=== PATIENT | male | born 1960 | race Caucasian/White ===

== ENCOUNTER → 2018-04-20 12:39 | Outpatient (CLI) | payer OTHER, SELFPAY ==
--- NOTE | 2018-04-20 12:44 | CT_ITS ---
CT sinus wo/w con CLINICAL INDICATION: Benign positional vertigo ITS.REASON: vertigo ORDERING PHYSICIAN: All Christianson MD PATIENT AGE: 57 years COMPARISON: None TECHNIQUE:Axial images obtained without and with contrast with sagittal and coronal reformats. All CT scans at the facility use one or more dose reduction, viz: automated exposure control, ma/kV adjustment per patient size (including targeted exams where dose is matched to indication, i.e. head), or iterative reconstruction technique. FINDINGS: There is mild mucosal thickening of the frontal sinuses. Moderate to severe mucosal thickening involves the superior and anterior ethmoids on both sides. There is moderate mucosal thickening of the left maxillary sinus with air-fluid level in the left maxillary sinus. There is mild mucosal thickening of the right maxillary sinus and sphenoid sinuses. There is only minimal rightward nasal septal deviation. There is mild mucosal edema of the left nasal turbinates. No nasal or sinus enhancing lesion evident. There is occlusion of the left ostiomeatal complex. The right OMC is patent. The orbits have an unremarkable appearance. Intracranial contents are grossly unremarkable. No obvious nasopharyngeal mass. The TMJs have an unremarkable appearance. There is opacification of the right external auditory canal. There are a few opacified mastoid air cells bilaterally and are nonspecific.. No evidence of cholesteatoma. No enhancing CP angle mass apparent. IMPRESSION: 1. Paranasal sinus inflammatory changes with mucosal thickening and an air-fluid level in the left maxillary sinus. 2. Mild rightward nasal septal deviation. 3. Minimal opacification of the mastoid air cells bilaterally
[2018-04-20 13:13] LABS: Anion Gap 11.2 mEq/L (5-15); Blood Urea Nitrogen 19 mg/dL (7-18); Calcium 9.5 mg/dL (8.5-10.1); Carbon Dioxide 25 mmol/L (21.0-32.0); Chloride 106 mmol/L (98-107); Creatinine,Serum 1.32 mg/dL (0.70-1.30); Estimated Glomerular Filt Rate 56 ml/min (>60); GFR (African American) 68 ML/MIN (>60); Glucose 107 mg/dL (74-106); Potassium 4.2 mmoL/L (3.5-5.1); Sodium 138 mmol/L (136-145)
== END ==
PROVIDERS: Family Provider Family Medicine Geriatric Medicine; PCP Family Medicine; Visit Provider Otolaryngology
DX: H81.10 Benign paroxysmal vertigo, unspecified ear (principal); J32.4 Chronic pansinusitis; H61.23 Impacted cerumen, bilateral; J30.2 Other seasonal allergic rhinitis
CPT/HCPCS: 36415; 70488; 80048; Q9967

== ENCOUNTER 2019-05-22 08:00 | Outpatient (RCR) | payer OTHER, SELFPAY | END 2019-05-22 08:05 | disposition home or self-care (01) | LOC: OT 08:00 | PROVIDERS: Visit Provider Orthopaedic Surgery Adult Reconstructive Orthopaedic Surgery | DX: S62.209A Unspecified fracture of first metacarpal bone, unspecified hand, initial encounter for closed fracture (principal) | CPT/HCPCS: 97035; 97110; 97140; 97166 ==

== ENCOUNTER 2025-06-04 07:05 | Outpatient (CLI) | payer MEDICARE, SELFPAY ==
--- NOTE | 2025-06-04 07:15 | CT_ITS ---
FINAL REPORT TECHNIQUE: Axial CT of the abdomen and pelvis, without and with IV contrast. This study was performed with techniques to keep radiation doses as low as reasonably achievable, (ALARA). Individualized dose reduction techniques using automated exposure control or adjustment of mA and/or kV according to the patient''s size were employed. CLINICAL HISTORY: ABD PAIN COMPARISON: None FINDINGS: Abdomen: Lung bases are clear. Liver has an unremarkable CT appearance. The spleen, pancreas and adrenal glands are unremarkable. The gallbladder is unremarkable. Precontrast imaging shows no renal stone disease. Postcontrast imaging of the kidneys shows no evidence of obstruction. There are multiple bilateral renal cysts. No evidence of enhancing renal mass. No bowel obstruction or fluid collection is seen. Pelvis: The appendix is normal. Pelvic bowel loops are unremarkable. The urinary bladder is unremarkable. There is a small left inguinal hernia. No fluid collection or adenopathy is seen. Bilateral L5 pars defects are noted without spondylolisthesis. IMPRESSION: No acute findings or abnormality identified to account for symptoms. Reviewed, Interpreted and Dictated by Marbella Lynn MD Transcribed by Mabel Acevedo Authenticated and [facility] [place]
[2025-06-04 07:45] LABS: Blood Urea Nitrogen 22 mg/dl (9-20); Creatinine,Serum 1.20 mg/dl (0.66-1.25); Estimated Glomerular Filt Rate 61 ml/min (>60); GFR (African American) 74 ML/MIN (>60)
[2025-06-04] MEDS: IOPAMIDOL-370 (76%);100ML BOTTLE 75 ML IV (08:14)
[2025-06-04] MEDS: SODIUM CHLORIDE 0.9% 10ML SYR (RAD ONLY) 10 ML IV (08:14)
== END 2025-06-04 23:59 | disposition home or self-care (01) ==
LOC: RAD 07:06
PROVIDERS: PCP Nurse Practitioner Family; Visit Provider Nurse Practitioner Family
DX: R10.9 Unspecified abdominal pain (principal)
CPT/HCPCS: 36415; 74178; 82565; 84520; Q9967